=== PATIENT | male | born 1955 | race Caucasian/White ===

== ENCOUNTER → 2018-08-24 | Day surgery (SDC) | payer MEDICARE, MEDICAID | LOC: MSO 08:38 | DX: H25.12 Age-related nuclear cataract, left eye (principal); H53.482 Generalized contraction of visual field, left eye; H25.11 Age-related nuclear cataract, right eye; E11.319 Type 2 diabetes mellitus with unspecified diabetic retinopathy without macular edema; I69.954 Hemiplegia and hemiparesis following unspecified cerebrovascular disease affecting left non-dominant side; I69.912 Visuospatial deficit and spatial neglect following unspecified cerebrovascular disease; Z79.4 Long term (current) use of insulin; Z79.899 Other long term (current) drug therapy; I10 Essential (primary) hypertension; K21.9 Gastro-esophageal reflux disease without esophagitis; E07.9 Disorder of thyroid, unspecified | CPT/HCPCS: 00142; A9270-GY; J0171; J2250; V2632 ==